=== PATIENT | female | born 1980 | race Two or more races ===

== ENCOUNTER → 2017-10-01 | Outpatient (CLI) | payer BC | END | disposition home or self-care (01) | LOC: XY 09:17 | DX: J84.89 Other specified interstitial pulmonary diseases (principal) | CPT/HCPCS: 78804; A9556 ==

== ENCOUNTER → 2017-10-03 | Outpatient (CLI) | payer BC | END | disposition home or self-care (01) | LOC: XY 08:00 → EDUNIT# 12:00 | DX: J84.89 Other specified interstitial pulmonary diseases (principal) | CPT/HCPCS: 36415; 82164; 85652; 86038; 86256; 86431 ==